=== PATIENT | female | born 1975 | race Caucasian/White ===

== ENCOUNTER 2017-01-12 15:19 | Inpatient (IN) | payer OTHER ==
[~2017-01-12 15:19] MED LIST: Penicillin G Potassium IV* 5,000,000 UNITS in NS 0.9% 100 ML* 100 ML IVPB ONE
[2017-01-12 16:26] LABS: Hematocrit 33 % (35-47); Hemoglobin 10.4 g/dl (12.0-16.0); Mean Corpuscular HGB Conc 32 g/dl (31-36); Mean Corpuscular Hemoglobin 24 pg (27-31); Mean Corpuscular Volume 77 fL (80-97); Mean Platelet Volume 9 um3 (7.4-10.4); Red Blood Count 4.27 10^6/ul (4.0-5.4); Red Cell Distribution Width 17 % (10.5-15); White Blood Count 11.3 10^3/ul (3.5-10.8)
[2017-01-12] MEDS: Penicillin G Potassium IV* 2,500,000 UNITS in NS 0.9% 100 ML* 100 ML IVPB SCH (20:00)
[2017-01-13] MEDS: Penicillin G Potassium IV* 2,500,000 UNITS in NS 0.9% 100 ML* 100 ML IVPB SCH ×4 (03:59→08:37)
[2017-01-13] MEDS ORDERED: Oxytocin in LR* 20 UNITS/1,000 ML BAG IVPB ONE (07:22)
[2017-01-13] MEDS ORDERED: Oxytocin in LR* 20 UNITS/1,000 ML BAG IVPB SCH ×2 (08:00→09:55)
[2017-01-13] MEDS ORDERED: oxyCODONE/Acetamin 5/325 MG* TAB PO PRN (09:52)
[2017-01-13] MEDS ORDERED: Dibucaine 1% 28.35 GM TUBE PR PRN (09:52)
[2017-01-13] MEDS ORDERED: Witch Hazel PAD* JAR TOPICAL PRN (09:52)
[2017-01-13] MEDS ORDERED: Acetaminophen TAB* 325 MG PO PRN (09:52)
[2017-01-13] MEDS ORDERED: Glycerin ADULT SUPP PR PRN (09:52)
[2017-01-13] MEDS ORDERED: Tetan/Diph/Pertus SYR(Tdap)* 0.5 ML SYR(BOOSTRIX) use SYR IM ONE (09:52)
[2017-01-13] MEDS: Ibuprofen TAB* 600 MG PO PRN ×2 (11:04→16:59)
[2017-01-13] MEDS: Docusate CAP* 100 MG PO SCH ×2 (17:02→20:32)
[2017-01-14] MEDS: Ibuprofen TAB* 600 MG PO PRN ×3 (08:34→20:09)
[2017-01-14] MEDS ORDERED: Ferrous Gluconate TAB* 324 MG TAB PO SCH (09:00)
[2017-01-14 09:33] LABS: Hematocrit 33 % (35-47); Hemoglobin 10.2 g/dl (12.0-16.0); Mean Corpuscular HGB Conc 31 g/dl (31-36); Mean Corpuscular Hemoglobin 24 pg (27-31); Mean Corpuscular Volume 77 fL (80-97); Mean Platelet Volume 9 um3 (7.4-10.4); Red Blood Count 4.25 10^6/ul (4.0-5.4); Red Cell Distribution Width 17 % (10.5-15); White Blood Count 12.2 10^3/ul (3.5-10.8)
[2017-01-14] MEDS: Docusate CAP* 100 MG PO SCH ×3 (13:49→21:30)
[2017-01-15] MEDS: Ibuprofen TAB* 600 MG PO PRN ×2 (05:47→12:16)
[2017-01-15 08:06] VITALS: BP 122/64
[2017-01-15] MEDS: Docusate CAP* 100 MG PO SCH (12:18)
== END 2017-01-15 12:30 | disposition home or self-care (01) | DRG 560 ==
LOC: MCHOBOUT 15:19 → MCHOB 15:42
PROVIDERS: ADMIT Midwife; ATTEND Midwife
PROC: 10E0XZZ Delivery of Products of Conception, External Approach (ICD-10-PCS; principal; 2017-01-13)
PROC: 3E033VJ Introduction of Other Hormone into Peripheral Vein, Percutaneous Approach (ICD-10-PCS; 2017-01-13)
PROC: 10907ZC Drainage of Amniotic Fluid, Therapeutic from Products of Conception, Via Natural or Artificial Opening (ICD-10-PCS; 2017-01-13)
PROC: 0HQ9XZZ Repair Perineum Skin, External Approach (ICD-10-PCS; 2017-01-13)
DX: O99.824 Streptococcus B carrier state complicating childbirth (principal); Z37.0 Single live birth; O70.0 First degree perineal laceration during delivery; Z3A.38 38 weeks gestation of pregnancy
CPT/HCPCS: 36415; 85025; 85027; 86850; 86900; 86901; A9270-GY; J2540